=== PATIENT | male | born 1945 | race African-American/Black ===

== ENCOUNTER 2022-11-23 12:12 | Outpatient (CLI) | payer OTHER | END 2022-11-23 12:13 | disposition home or self-care (01) | LOC: RAD 12:12 | PROVIDERS: ATTEND Internal Medicine Gastroenterology | DX: K27.9 Peptic ulcer, site unspecified, unspecified as acute or chronic, without hemorrhage or perforation (principal) | CPT/HCPCS: 74246 ==